=== PATIENT | male | born 2000 | race Caucasian/White ===

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

== ENCOUNTER 2022-11-25 02:26 | Emergency (ER) | payer SELFPAY ==
[2022-11-25] MEDS ORDERED: HYDROmorphone 1 MG/ML Syringe IVPUSH ONE (02:47)
[2022-11-25] MEDS ORDERED: Metoclopramide 10 MG/2 ML SDV IVPUSH ONE (02:48)
[2022-11-25] MEDS ORDERED: diphenhydrAMINE 50 MG/ML SDV IVPUSH ONE (02:48)
[2022-11-25] MEDS ORDERED: Ketorolac 30 MG/ML SDV IVPUSH SCH (03:00)
[2022-11-25] MEDS ORDERED: Dextrose 5%-0.9% NaCl 1,000 ML IV SCH (03:00)
[2022-11-25] MEDS ORDERED: Polyethylene Glycol 3350 Powder 17 GM Packet PO ONE (03:45)
[2022-11-25 04:18] LABS: APPEARANCE,URINE CLEAR (Clear); BILIRUBIN,URINE NEGATIVE (Negative); COLOR,URINE YELLOW (Yellow); GLUCOSE,URINE NEGATIVE (Negative); KETONES,URINE NEGATIVE (Negative); LEUKOCYTE ESTERASE,URINE NEGATIVE (Negative); NITRITE,URINE NEGATIVE (Negative); OCCULT BLOOD,URINE NEGATIVE (Negative); PROTEIN,URINE NEGATIVE (Negative)
[2022-11-25 04:33] LABS: BACTERIA,URINE FEW /hpf (FEW); EPITHELIAL CELLS,URINE NOT SEEN /hpf (0-5); MUCUS,URINE MODERATE /hpf (FEW); RBC,URINE 0-5 /hpf (0-5); WBC,URINE 0-5 /hpf (0-5)
== END 2022-11-25 04:20 | disposition home or self-care (01) ==
LOC: JD.ED 02:26
DX: K59.00 Constipation, unspecified (principal); R10.12 Left upper quadrant pain
CPT/HCPCS: 74176; 81001; 96360; 99284; A9270; J7042

== ENCOUNTER 2023-03-31 18:42 | Emergency (ER) | payer BC ==
[2023-03-31] MEDS ORDERED: Ondansetron 4 MG Tab.DIS PO ONE (19:05)
[2023-03-31] MEDS ORDERED: Sodium Chloride 0.9% 10 ML Syringe FLUSH PRN (19:34)
[2023-03-31] MEDS ORDERED: Iopamidol 612 MG/ML 100 ML Bottle IVPUSH ONE (19:36)
[2023-03-31] MEDS ORDERED: Iopamidol 612 MG/ML 30 ML SDV IVPUSH ONE (19:36)
[2023-03-31] MEDS ORDERED: Sodium Chloride 0.9% 10 ML Syringe FLUSH ONE (19:36)
[2023-03-31 19:59] LABS: BASOPHILS PERCENT AUTO 0.4 % (0.0-1.0); EOSINOPHILS ABSOLUTE AUTO 0.1 K/mm3 (0.0-0.4); EOSINOPHILS PERCENT AUTO 0.6 % (0.0-6.0); HEMOGLOBIN 15.7 gm/dl (14.0-18.0); IMMATURE GRAN ABSOLUTE AUTO 0.04 K/mm3 (0.00-0.05); IMMATURE GRAN PERCENT AUTO 0.4 % (0.0-0.4); LYMPHOCYTES ABSOLUTE AUTO 1.9 K/mm3 (1.0-4.8); LYMPHOCYTES PERCENT AUTO 19.9 % (24.0-44.0); MEAN CORPUSCULAR HEMOGLOBIN 30.3 pg (28.0-32.0); MEAN CORPUSCULAR HGB CONC 34.1 g/dl (32.0-36.0); MEAN CORPUSCULAR VOLUME 88.6 fl (83.0-99.0); MEAN PLATELET VOLUME 9.4 fl (9.4-12.4); MONOCYTES ABSOLUTE AUTO 0.8 K/mm3 (0.0-0.8); MONOCYTES PERCENT AUTO 7.9 % (0.0-8.0); NEUTROPHILS ABSOLUTE AUTO 6.8 K/mm3 (1.8-7.7); NEUTROPHILS PERCENT AUTO 70.8 % (41.0-71.0); PLATELET COUNT,PLT 252 K/mm3 (150-400); RED BLOOD CELL COUNT 5.19 M/mm3 (4.52-5.90); WHITE BLOOD CELL COUNT,WBC 9.63 K/mm3 (3.9-11.3)
[2023-03-31] MEDS ORDERED: Diatrizoate Meglumine/Diatrizoate Sodium 37% 120 ML Bottle PO ONE (20:29)
[2023-03-31 20:36] LABS: A/G RATIO 1.2 (1-2); ALBUMIN 4.3 g/dl (3.4-5.0); ANION GAP 15.5 (5-15); BUN/CREATININE RATIO 8.1 (14-18); CALCIUM 9.4 mg/dL (8.5-10.1); CREATININE 1.6 mg/dL (0.7-1.3); EST CRCL DRUG DOSING (CG) 73.65 mL/min; POTASSIUM,K 3.5 mEq/L (3.5-5.1)
[2023-03-31] MEDS ORDERED: Acetaminophen/HYDROcodone 325-5 MG Tab PO ONE (21:25)
[2023-03-31] MEDS ORDERED: Ketorolac 30 MG/ML SDV IVPUSH ONE (21:25)
[2023-03-31 21:41] LABS: APPEARANCE,URINE CLEAR (Clear); BILIRUBIN,URINE 1+ (Negative); COLOR,URINE YELLOW (Yellow); GLUCOSE,URINE NEGATIVE (Negative); KETONES,URINE TRACE (Negative); LEUKOCYTE ESTERASE,URINE NEGATIVE (Negative); NITRITE,URINE NEGATIVE (Negative); OCCULT BLOOD,URINE TRACE-LYSED (Negative); PROTEIN,URINE NEGATIVE (Negative)
[2023-03-31 22:17] LABS: BACTERIA,URINE FEW /hpf (FEW); MUCUS,URINE FEW /hpf (FEW); SQUAMOUS EPITHELIAL CELLS,UR 0-5 /hpf (0-5); WBC,URINE 0-5 /hpf (0-5)
== END 2023-03-31 22:15 | disposition home or self-care (01) ==
LOC: JD.ED 18:42
DX: N13.2 Hydronephrosis with renal and ureteral calculous obstruction (principal); E78.00 Pure hypercholesterolemia, unspecified; Z79.899 Other long term (current) drug therapy
CPT/HCPCS: 36415; 74019; 74177; 80053; 81001; 85025; 86140; 96374; 99284; A9270; J1885; J3490; Q9963; Q9967